=== PATIENT | female | born 1935 | race Caucasian/White ===

== ENCOUNTER 2017-09-11 09:39 | Emergency (ER) | payer MEDICARE, MEDICAID ==
[~2017-09-11] VITALS: Ht 165.1 cm; Wt 70.8 kg
[~2017-09-11 09:39] MED LIST: RANITIDINE HCL150 MG ORAL; VALACYCLOVIR500 MG ORAL; VIBRAMYCIN100 MG ORAL
--- NOTE | 2017-09-11 10:05 | Emergency Room Report ---
History of Present Illness General Chief Complaint: Pain Source: Patient Present Illness HPI Patient present with complaints of pain to the left lateral aspect of the mid thigh region Patient reports that over the past 7 days she has had some discomfort in that region She feels that several days ago when she had sat in a bus and had some increased discomfort Denies any fall or trauma Patient feels that she has a specific region where she can palpate the discomfort laterally No obvious swelling No erythema patient denies any calf discomfort or swelling in the lower leg denies any other pain to the foot or knee area denies any pelvic pain Allergies: Coded Allergies: ACETAMINOPHEN (Verified Allergy, Mild, 02/11/10) PENICILLIN G (Verified Allergy, Mild, 02/11/10) Patient History Past Medical History: see triage record Pertinent Family History: none Reviewed Nursing Documentation: PMH: Agreed, PSxH: Agreed Nursing Documentation-PMH Hx Cardiac Problems: Yes - hypertrophic cardiomyopathy Hx Hypertension: Yes Hx Pacemaker: Yes - 05/07/2015 Review of Systems All Other Systems: negative except mentioned in HPI Physical Exam Vital Signs Date Time Temp Pulse Resp B/P (MAP) Pulse Ox O2 Delivery O2 Flow Rate FiO2 09/11/17 09:43 98.1 62 18 173/73 96 Room Air Sp02 EP Interpretation: reviewed, normal General Appearance: well appearing, no apparent distress Head: normocephalic, atraumatic Eyes: bilateral eye PERRL, bilateral eye EOMI ENT: hearing grossly normal, normal pharynx, TMs + canals normal, uvula midline Neck: full range of motion, supple, no meningismus, no bony tend Respiratory: lungs clear, normal breath sounds, no rhonchi, no respiratory distress, no retraction, no accessory muscle use Cardiovascular #1: normal peripheral pulses, regular rate, rhythm, no edema, no gallop, no JVD, no murmur Gastrointestinal: normal bowel sounds, non tender, soft, no mass, no organomegaly, non-distended, no guarding, no hernia, no pulsatile mass, no rebound Genitourinary: no CVA tenderness Musculoskeletal: normal inspection - Close examination of the left lower extremity, does not reveal any obvious swelling, patient has some specific areas of discomfort laterally just at the mid upper femoral region, with 2, 3 specific areas going down towards the lateral knee. No rash, no bruising is appreciated. I am able to flex and extend the knee without much discomfort Neurologic: oriented x3, responsive, operator bearer systems III-XII nml as tested, motor strength/ tone normal, sensory intact Psychiatric: mood/affect normal Skin: normal color, no rash, warm/dry, palpation normal Lymphatic: normal inspection, no adenopathy Medical Decision Making Diagnostic Impression: Primary Impression: Leg pain ER Course Multiple differentials considered including but not limited to metabolic pathology such as hypokalemia, DVT occult fracture Patient has no symptoms of swelling or erythema on the lower extremity There is no other complaints of any cramping or other medications to increase likelihood of electrolyte pathology Patient did have, x-ray done which was negative Otherwise remains fairly stable did better with acute injection of pain medicine The patient is stable for close followup Other X-Ray Diagnostic Results Other X-Ray Diagnostic Results : X-Ray ordered: left femur # of Views/Limited Vs Complete: 3 View Indication: Pain EP Interpretation: Yes Interpretation: no dislocation, no soft tissue swelling, no fractures Impression: No acute disease Electronically Signed by: Anna Quiros DO Last Vital Signs Date Time Temp Pulse Resp B/P (MAP) Pulse Ox O2 Delivery O2 Flow Rate FiO2 09/11/17 09:43 98.1 62 18 173/73 96 Room Air Status: improved Disposition: HOME, SELF-CARE Condition: Improved Additional Instructions: Patient is provided with the discharge instructions notified to follow up with primary doctor in the next 2-3 days otherwise return to the er with any worsening symptoms. Please note that this report is being documented using Pro[employer] technology. This can lead to erroneous entry secondary to incorrect interpretation by the dictating instrument. ANNA QUIROS D.O. Sep 11, 2017 10:05
[2017-09-11] MEDS ORDERED: TOPROL XL100 MG ORAL (10:09)
[2017-09-11] MEDS ORDERED: SPIRONOLACTONE1 EACH ORAL (10:09)
[2017-09-11] MEDS ORDERED: LOSARTAN POTASS50 MG ORAL (10:09)
[2017-09-11] MEDS ORDERED: LEVOTHYROXINE25 MCG ORAL (10:09)
[2017-09-11] MEDS ORDERED: CLOPIDOGREL75 MG ORAL (10:09)
[2017-09-11] MEDS ORDERED: CALCIUM CA500 MG/5 M PO (10:09)
[2017-09-11] MEDS ORDERED: Ketorolac 60mg Inj IM ONE (10:15)
--- NOTE | 2017-09-11 10:55 | Diagnostic Imaging Report ---
Indication: Pain Technique: XRAY Femur 2v L Comparison: None Findings: No acute fracture or dislocation. Imaged left hip and knee joints grossly preserved. No radiopaque foreign body seen. Copious stool noted in the rectum. Impression: No acute fracture or dislocation. Copious stool noted in the rectum, question constipation.
[2017-09-11 11:25] VITALS: BP 149/70
== END 2017-09-11 11:25 | disposition home or self-care (01) ==
LOC: EMR 10:25
DX: M79.605 Pain in left leg (principal); Z88.0 Allergy status to penicillin; Z88.6 Allergy status to analgesic agent; I10 Essential (primary) hypertension; Z95.0 Presence of cardiac pacemaker
CPT/HCPCS: 96372; 99283

== ENCOUNTER 2019-01-23 07:31 | Emergency (ER) | payer MEDICARE, MEDICAID ==
[~2019-01-23] VITALS: Ht 165.1 cm; Wt 70.3 kg
[~2019-01-23 07:31] MED LIST changes: +CALCIUM CA500 MG/5 M PO; +CLOPIDOGREL75 MG ORAL; +LEVOTHYROXINE25 MCG ORAL; +LOSARTAN POTASS50 MG ORAL; +SPIRONOLACTONE1 EACH ORAL; +TOPROL XL100 MG ORAL
--- NOTE | 2019-01-23 07:42 | NUR ---
ED Nurse Note: Patient walked into ED from home escorted by her daughter patient reports she tripped and fell yesterday around 1030, patient fell on her right side, hit her right knee and elbow. patient also reports right sided rib pain mostly when she is breathing. patient rates 9/10 pain. patient denies head trauma, any LOC. patient is alert awake and ambulatory. changed patient into the hospital gown. patient's daughter at bedside
[2019-01-23 08:06] VITALS: BP 147/58
--- NOTE | 2019-01-23 08:26 | NUR ---
ED Nurse Note: patient went to CT blood sent to lab
[2019-01-23 08:35] LABS: EOSINOPHILS % (AUTO) 0.7 % (0.0-3.0); HEMATOCRIT 39.5 % (37.0-47.0); HEMOGLOBIN 13.2 G/DL (12.0-16.0); LYMPHOCYTES % (AUTO) 42.5 % (20.0-45.0); MEAN CORPUSCULAR VOLUME 90 FL (80-99); MONOCYTES % (AUTO) 7.1 % (1.0-10.0); NEUTROPHILS % (AUTO) 48.8 % (45.0-75.0); PLATELET COUNT 203 K/UL (150-450); RED CELL DISTRIBUTION WIDTH 11.5 % (11.6-14.8); WHITE BLOOD COUNT 8.3 K/UL (4.8-10.8)
[2019-01-23 08:39] LABS: ANION GAP 8 mmol/L (5-15); BLOOD UREA NITROGEN 21 mg/dL (7-18); CALCIUM 9.7 MG/DL (8.5-10.1); CARBON DIOXIDE 26 MMOL/L (21-32); CHLORIDE 108 MMOL/L (98-107); CREATININE 1.2 MG/DL (0.55-1.30); POTASSIUM 4.6 MMOL/L (3.5-5.1); SODIUM 142 MMOL/L (136-145)
[2019-01-23 08:53] LABS: ALANINE AMINOTRANSFERASE 18 U/L (12-78); ALBUMIN 3.7 G/DL (3.4-5.0); ALBUMIN/GLOBULIN RATIO 1.2 (1.0-2.7); ALKALINE PHOSPHATASE 43 U/L (46-116); ASPARTATE AMINO TRANSFERASE 24 U/L (15-37); BILIRUBIN,TOTAL 0.5 MG/DL (0.2-1.0); CKMB 2.1 NG/ML (0.0-3.6); CREATINE KINASE 79 U/L (26-308)
--- NOTE | 2019-01-23 09:03 | Diagnostic Imaging Report ---
Indication: Head trauma. Headache Technique: Contiguous 5 mm thick transaxial imaging of the head obtained in a Siemens Sensation [address] scanner. Soft tissue and bone windows generated. Automatic Exposure Control was utilized. Total Dose length Product (DLP): 1277.[address] Dose Index Volume (CTDIvol): 70.38 mGy Comparison: 03/11/2009 Findings: There is mild prominence of the ventricles, basal cisterns, and cerebral sulci consistent with atrophy. Mild, nonspecific, white matter hypoattenuation is noted throughout the brain consistent with chronic small vessel disease. There is no midline shift, edema, acute hemorrhage, mass effect, or abnormal extra-axial fluid collections. Bones and extra osseous soft tissues are unremarkable. Impression: No acute intracranial bleed, mass effect or edema. Mild atrophy of the brain. Nonspecific white matter hypoattenuation probably due to chronic small vessel disease. The CT scanner at [facility] is accredited by the [employer] and the scans are performed using dose optimization techniques as appropriate to a performed exam including Automatic Exposure control.
--- NOTE | 2019-01-23 09:04 | NUR ---
ED Nurse Note: patient came back from CT
[2019-01-23] MEDS ORDERED: Ketorolac 30mg Inj IV ONE (09:15)
[2019-01-23] MEDS ORDERED: Methocarbamol 500mg tab ORAL ONE (09:15)
--- NOTE | 2019-01-23 09:20 | Diagnostic Imaging Report ---
Indication: Chest pain trauma Technique: Continuous helical transaxial imaging of the chest was obtained from the thoracic inlet to the upper abdomen. No intravenous contrast was administered. Coronal 2-D reformats were also obtained. Total Dose length Product (DLP): 578.[address] Dose Index Volume (CTDIvol): 16.44 mGy Comparison: none Findings: There are acute nondisplaced fractures of the right fourth and fifth ribs demonstrated. There is no hematoma although there may be mild soft tissue swelling of the intercostal muscles. There is no evidence of a pneumothorax or pulmonary contusion. The bones appear osteopenic. Mild endplate spurs and facet hypertrophy noted throughout the thoracic spine. The sternum appears intact. There are multiple tiny nodules some calcified. There are calcifications in the mediastinum. Pacemaker is noted. Mild cardiomegaly is present. There is a hiatal hernia. The aorta is calcified. There is no pleural effusion. Visualized part of the upper abdomen shows a tiny gallstone versus polyp. There are hypodensities within the central portion of both kidneys likely parapelvic cysts. There are also evidence of cortical cysts within the right kidney. IMPRESSION: Acute rib fractures involving the right fourth and fifth ribs. No associated abnormalities. No other evidence of acute injury. Osteoporosis Old granulomatous disease Atherosclerotic vascular disease Hiatal hernia Other incidental findings as above The CT scanner at [facility] is accredited by the [employer] and the scans are performed using dose optimization techniques as appropriate to a performed exam including Automatic Exposure control.
[2019-01-23 09:23] VITALS: BP 148/60
--- NOTE | 2019-01-23 10:11 | Diagnostic Imaging Report ---
Indication: Forearm painPain Findings: 2 views of the right forearm were obtained. No acute fractures, malalignment, erosions or periostitis are identified. . Bones are osteopenic Soft tissues are unremarkable. Impression: Negative for acute injury
--- NOTE | 2019-01-23 10:23 | Diagnostic Imaging Report ---
Indication: Pain Knee pain/trauma 3 views of the right knee were obtained. Findings: There is no acute fracture or malalignment identified and no definite joint effusion. There is soft tissue swelling present especially in the medial and anterior/prepatellar aspect of the knee. IMPRESSION: Soft tissue swelling
[2019-01-23] MEDS ORDERED: IBUPROFEN600 MG ORAL (10:24)
[2019-01-23] MEDS ORDERED: ROBAXIN-750750 MG PO (10:24)
[2019-01-23 10:38] VITALS: BP 133/47
--- NOTE | 2019-01-23 10:38 | NUR ---
ER DISCHARGE NOTE: Patient is cleared to be discharged per REBECCA Graham, pt is aox4, on room air, with stable vital signs. pt was given dc and prescription instructions, pt was able to verbalize understanding, pt id band and iv site removed without complications. pt is able to ambulate with steady gait. pt took all belongings with her daughter
--- NOTE | 2019-01-23 13:41 | Emergency Room Report ---
History of Present Illness General Chief Complaint: Multiple Trauma/Fall Source: Patient Present Illness HPI Patient presents with complaints of multiple injuries and pain after a trip and fall yesterday Patient is here with daughter who provides most of the history Patient is fairly clear regarding the mechanical fall associated with this denies any lightheadedness denies any chest pain Patient initially denied being on blood thinners however is on Plavix Pain is localized to the right rib cage area Right knee is also swollen and bruised Discomfort to the right elbow and left forearm Denies any neck pain or photophobia and eyes any focal weakness patient is ambulatory Allergies: Coded Allergies: ACETAMINOPHEN (Verified Allergy, Mild, 02/11/10) PENICILLIN G (Verified Allergy, Mild, 02/11/10) Patient History Past Medical History: see triage record Pertinent Family History: none Now: No Reviewed Nursing Documentation: PMH: Agreed; PSxH: Agreed Nursing Documentation-PMH Past Medical History: No History, Except For Hx Cardiac Problems: Yes - hypertrophic cardiomyopathy Hx Hypertension: Yes Hx Pacemaker: Yes - 05/07/2015 Review of Systems All Other Systems: negative except mentioned in HPI Physical Exam Vital Signs Date Time Temp Pulse Resp B/P (MAP) Pulse Ox O2 Delivery O2 Flow Rate FiO2 01/23/19 07:35 97.5 62 20 95 Room Air 01/23/19 08:06 147/58 Sp02 EP Interpretation: reviewed, normal General Appearance: well appearing, no apparent distress Head: normocephalic, atraumatic Eyes: bilateral eye PERRL, bilateral eye EOMI ENT: hearing grossly normal, normal pharynx, TMs + canals normal, uvula midline Neck: full range of motion, supple, no meningismus, no bony tend Respiratory: lungs clear, normal breath sounds, no rhonchi, no respiratory distress, no retraction, no accessory muscle use Cardiovascular #1: normal peripheral pulses, regular rate, rhythm, no edema, no gallop, no JVD, no murmur, other - Bruising and tenderness over the right mid axillary just at the DIP Gastrointestinal: normal bowel sounds, non tender, soft, no mass, no organomegaly, non-distended, no guarding, no hernia, no pulsatile mass, no rebound Genitourinary: no CVA tenderness Musculoskeletal: other - Ecchymosis and effusion right knee, able to flex however, abrasion to the right elbow full range of motion intact, ecchymosis and discomfort palpable to the left mid radial region on the left forearm Neurologic: oriented x3, responsive, 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, motor strength/ tone normal, sensory intact Psychiatric: mood/affect normal Skin: other - As above multiple areas of bruising Lymphatic: normal inspection, no adenopathy Medical Decision Making Diagnostic Impression: Primary Impression: rib fractures Additional Impressions: effusion contusion ER Course Given the patient's history and presentation given the age and risk factors EKG and blood work was also initiated EKG shows a paced rhythm Blood work is appropriate imaging reveals a right-sided rib fractures on 2 levels Knee x-ray is negative for acute fracture however there is obvious effusion Patient has done significantly better with acute intervention patient's primary was also contacted and notified and patient is stable for close outpatient follow-up Labs Test 01/23/19 08:12 White Blood Count 8.3 K/UL (4.8-10.8) Red Blood Count 4.40 M/UL (4.20-5.40) Hemoglobin 13.2 G/DL (12.0-16.0) Hematocrit 39.5 % (37.0-47.0) Mean Corpuscular Volume 90 FL (80-99) Mean Corpuscular Hemoglobin 30.1 PG (27.0-31.0) Mean Corpuscular Hemoglobin Concent 33.6 G/DL (32.0-36.0) Red Cell Distribution Width 11.5 % (11.6-14.8) Platelet Count 203 K/UL (150-450) Mean Platelet Volume 6.7 FL (6.5-10.1) Neutrophils (%) (Auto) 48.8 % (45.0-75.0) Lymphocytes (%) (Auto) 42.5 % (20.0-45.0) Monocytes (%) (Auto) 7.1 % (1.0-10.0) Eosinophils (%) (Auto) 0.7 % (0.0-3.0) Basophils (%) (Auto) 1.0 % (0.0-2.0) Prothrombin Time 10.4 SEC (9.30-11.50) Prothromb Time International Ratio 1.0 (0.9-1.1) Activated Partial Thromboplast Time 22 SEC (23-33) Sodium Level 142 MMOL/L (136-145) Potassium Level 4.6 MMOL/L (3.5-5.1) Chloride Level 108 MMOL/L (98-107) Carbon Dioxide Level 26 MMOL/L (21-32) Anion Gap 8 mmol/L (5-15) Blood Urea Nitrogen 21 mg/dL (7-18) Creatinine 1.2 MG/DL (0.55-1.30) Estimat Glomerular Filtration Rate mL/min (>60) Glucose Level 105 MG/DL (74-106) Calcium Level 9.7 MG/DL (8.5-10.1) Total Bilirubin 0.5 MG/DL (0.2-1.0) Aspartate Amino Transf (AST/SGOT) 24 U/L (15-37) Alanine Aminotransferase (ALT/SGPT) 18 U/L (12-78) Alkaline Phosphatase 43 U/L (46-116) Total Creatine Kinase 79 U/L (26-308) Creatine Kinase MB 2.1 NG/ML (0.0-3.6) Creatine Kinase MB Relative Index 2.6 Troponin I 0.023 ng/mL (0.000-0.056) Total Protein 6.9 G/DL (6.4-8.2) Albumin 3.7 G/DL (3.4-5.0) Globulin 3.2 g/dL Albumin/Globulin Ratio 1.2 (1.0-2.7) EKG Diagnostic Results Rate: other - paced Rhythm: other ST Segments: no acute changes Rhythm Strip Diag. Results EP Interpretation: yes Rate: 60 Rhythm: no PVC's, no ectopy, other - paced Other X-Ray Diagnostic Results Other X-Ray Diagnostic Results #1: X-Ray ordered: right knee # of Views/Limited Vs Complete: 4 View Indication: Pain EP Interpretation: Yes Interpretation: no dislocation, no fractures, other - Soft tissue small effusion Impression: Other - As above Electronically Signed by: Anna Graham DO Other X-Ray Diagnostic Results #2: X-Ray ordered: Left forearm # of Views/Limited Vs Complete: 2 View Indication: Pain EP Interpretation: Yes Interpretation: no dislocation, no soft tissue swelling, no fractures Impression: No acute disease Electronically Signed by: Anna Graham DO CT/MRI/US Diagnostic Results CT/MRI/US Diagnostic Results : Impression CT chestIMPRESSION: Acute rib fractures involving the right fourth and fifth ribs. No associated abnormalities. No other evidence of acute injury. Osteoporosis Old granulomatous disease Atherosclerotic vascular disease Hiatal hernia Other incidental findings as above CT head: no acute disease Last Vital Signs Date Time Temp Pulse Resp B/P (MAP) Pulse Ox O2 Delivery O2 Flow Rate FiO2 01/23/19 10:38 97.5 60 22 133/47 100 Room Air Status: improved Disposition: HOME, SELF-CARE Condition: Improved Scripts Ibuprofen* (MOTRIN*) 600 Mg Tablet 600 MG ORAL Q8H PRN for For Pain, #12 TAB 0 Refills Prov: Anna Graham DO 01/23/19 Methocarbamol* (ROBAXIN-750*) 750 Mg Tablet 750 MG PO TID, #21 TAB 0 Refills Prov: Anna Graham DO 01/23/19 Referrals: NON PHYSICIAN (PCP) Patient Instructions: Contusion, [id number], Elbow Contusion, [id number], Rib Fracture, [id number], Hematoma, [id number] Additional Instructions: Patient is provided with the discharge instructions notified to follow up with primary doctor in the next 2-3 days otherwise return to the er with any worsening symptoms. Please note that this report is being documented using DRAGON technology. This can lead to erroneous entry secondary to incorrect interpretation by the dictating instrument. Anna Graham DO January 23, 2019 13:41
--- NOTE | 2019-01-24 14:45 | Cardiology Report ---
APPROVED REPORT EKG Measurement Heart [id number] Normal sinus rhythm Right bundle branch block Minimal voltage criteria for LVH, may be normal variant Inferior infarct, age undetermined Anterior infarct, age undetermined Abnormal ECG
== END 2019-01-23 10:38 | disposition home or self-care (01) ==
LOC: EMR 07:55
DX: S22.41XA Multiple fractures of ribs, right side, initial encounter for closed fracture (principal); K44.9 Diaphragmatic hernia without obstruction or gangrene; I70.90 Unspecified atherosclerosis; M81.0 Age-related osteoporosis without current pathological fracture; N20.0 Calculus of kidney; M79.631 Pain in right forearm; M85.831 Other specified disorders of bone density and structure, right forearm; G31.9 Degenerative disease of nervous system, unspecified; M25.461 Effusion, right knee; Z88.0 Allergy status to penicillin; W01.0XXA Fall on same level from slipping, tripping and stumbling without subsequent striking against object, initial encounter; Y92.9 Unspecified place or not applicable; I10 Essential (primary) hypertension; Z95.0 Presence of cardiac pacemaker; S50.311A Abrasion of right elbow, initial encounter; S50.12XA Contusion of left forearm, initial encounter
CPT/HCPCS: 36415; 70450; 71250; 73090; 73562; 80053; 82550; 82553; 84484; 85025; 85610; 85730; 93005; 96374; 99284; J1885